=== PATIENT | male | born 1950 | race Caucasian/White ===

== ENCOUNTER → 2023-08-30 | Outpatient (CLI) | payer OTHER, MEDICARE, SELFPAY ==
--- OUTSIDE RECORDS SUMMARY | 2023-08-30 08:10 | XMS RPT_ITS | CCD ---
Author Name Unknown Address [address] [place] [address] Organization [facility] Care Team Providers Care Computer Hardware Technician Name Role Phone RAMANIRA, LYNETTE Unavailable Unavailabl e CORONADO, EWA Unavailable Unavailable MAIKEL LYNETTE Unavailable Unavailabl e CORONADO, EWA Unavailable Unavailable Steffen Warren MD Primary Care Provider [phone] STEFFEN WARREN Referring Unavailable STEFFEN WARREN Attending Unavailable STEFFEN WARREN Primary Care Unavailable Problems Problem Classification Problem Date Documented Da te Episodic/Chronic Cardiac dysrhythmias (4 sources) Paroxysmal atrial fibrillation; Translations: [Paroxysmal atrial fibrillation] Onset: 08-17-2023 08-17-2023 Chronic Results Test Name Value Interpretation Reference Range Facil ity Vital Signs Date Time Vital Sign Value Performing Clinician Faci lity 08-17-2023 08:28-0500 Body height 170.2 cm Steffen Warren MD Work Phone: [facility] [employer] 08-17-2023 08:28-0500 Body mass index (BMI) [Ratio] 33.67 kg/m2 Steffen Warren MD Work Phone: [facility] [employer] 08-17-2023 08:28-0500 Body weight 97.52 kg Steffen Warren MD Work Phone: [facility] [employer] Encounters Encounter Date Encounter Type Care Provider Facility Start: 08-17-2023 End: 08-18-2023 ambulatory STEFFEN WARREN [facility] Start: 08-17-2023 End: 08-17-2023 Subsequent hospital visit by physician Steffen Warren MD Work Phone: [facility] Non-Invasive Cardiology Procedures Date Procedure Procedure Detail Performing Clinician Start: 08-17-2023 Echo tthrc r-t 2d w/wom-mode compl spec&colr d Steffen Warren MD Work Phone: Plan of Treatment Date Care Activity Detail Author Start: 03-01-2023 COVID-19 Vaccine ( season) COVID-19 Vaccine ( season) [facility] Start: 2009 RSV Immunization age d 60 or older (1 - 1-dose 60+ series) RSV Immunization aged 60 or older (1 - 1-dose 60+ series) [facility] Start: 10-18-1999 Zoster Vaccines (1 of 2) Zoster Vacc macario (1 of 2) [facility] Start: 1968 DTaP/Tdap/Td Vaccine s (1 - Tdap) DTaP/Tdap/Td Vaccines (1 - Tdap) [facility] Start: 10-18-1967 Diabetes mellitus screening Diabetes Screening [facility] Start: 10-18-1967 Hepatitis C screening Hepatitis C Sc reening [facility] Start: 1961 Depression Screening Depression Scre ening [facility] Start: 1949 Lipid panel Lipid Panel [facility] Start: 1949 Screening for malign ant neoplasm of colon [facility] Payers Date Payer Category Payer Private Health Insurance [facility] OPT [id number] 2023-Present [address] [place] [address] Commercial [id number] 2023 Private Health Insurance [id number] 2016 Medicare MEDICARE MEDICAR E PART A AND B [id number] 2016-Present [address] [place] [address] Medicare [id number] 2016 Medicare [id number] Social History Date Type Detail Facility Tobacco smoking stat [facility] Tobacco smoking consumption unknown [facility] Start: 1950 Sex Assigned At Not on file [facility] Gender identity Not on file [facility] Clinical Notes 08-10-2020 to 12-08-2020 Note Date & Type Note Facility 12-08-2020 Note HNO ID: [id number] Author: Ant Munguia MD Service: ? Author Type: Physician Type: Progress Notes Filed: 12/08/2020 11:10 AM Note Text: Pseudophakia (primary encounter diagnosis) Lens replaced Prednisolone taper - prednisolone 1 drop three times a day for 1 week then Prednisolone 1 drop twice a day for 1 week then Prednisolone 1 drop once a day for 1 week then stop I Ant Munguia have confirmed and edited as necessary the relevant ophthalmic history, ROS, and neuro exam findings as obtained by others. I have seen and examined the patient. I also have reviewed and agree with the assessment and plan as stated above and agree with all of its relevant components. [facility] 11-30-2020 Note HNO ID: [id number] Author: Coty Mandujano MD Service: ? Author Type: Fellow Type: Progress Notes Filed: 11/30/2020 11:04 AM Note Text: Pseudophakia (primary encounter diagnosis) POD1 s/p cataract extraction with Intraocular lens right eye Prednisolone drop: 1 drop in the operated eye 4 times a day for 1 week, Then 1 drop in the operated eye 3 times a day for 1 week, Then 1 drop in the operated eye 2 times a day for 1 week, Then 1 drop in the operated eye 1 time a day for 1 week, Then STOP Vigamox drop: 1 drop in the operated eye 4 times a day for 5 days Discussed symptoms of infection, elevated IOP, and retinal detachment. Patient was encouraged to call immediately if any of these occur. I have confirmed and edited as necessary the relevant ophthalmic history, ROS, and the neuro exam findings as obtained by others. I have seen and examined this patient. I have discussed the case and the management of this patient's care with the Resident/Fellow, if applicable. I also have reviewed and agree with the assessment and plan as stated above and agree with all of its relevant components. Coty Mandujano MD November 30, 2020 11:03 AM [facility] 11-29-2020 Note HNO ID: [id number] Author: Ant Munguia MD Service: ? Author Type: Physician Type: Progress Notes Filed: 11/29/2020 1:14 PM Note Text: Nuclear senile cataract of right eye (primary encounter diagnosis) Cataract extraction with Intraocular lens right eye Discussed with patient risk, benefits and alternatives of cataract surgery including premium lenses we have decided to aim for mild myopia. Patient has seen video regarding cataract surgery and has had a chance to discuss the possible complications. In addition, we discussed treating astigmatism with a limbal relaxing incisions versus premium lenses. The patient understands that the limbal relaxing incisions are not as precise as a premium lens in correcting astigmatism. I Ant Munguia have confirmed and edited as necessary the relevant ophthalmic history, ROS, and neuro exam findings as obtained by others. I have seen and examined the patient. I also have reviewed and agree with the assessment and plan as stated above and agree with all of its relevant components. [facility] 11-10-2020 Note HNO ID: [id number] Author: Ant Munguia MD Service: ? Author Type: Physician Type: Progress Notes Filed: 11/10/2020 2:00 PM Note Text: Nuclear senile cataract of right eye (primary encounter diagnosis) History of pterygium excision with conjunctival graft Unspecified pterygium of right eye Cataract extraction and Intraocular lens right eye Will return for remeasurement of cataract in the right eye Prednisolone 1 drop four times a day Remove sutures Remove contact lens - recheck measurements prior to surgery because was wearing a bandage contact lens I Ant Munguia have confirmed and edited as necessary the relevant ophthalmic history, ROS, and neuro exam findings as obtained by others. I have seen and examined the patient. I also have reviewed and agree with the assessment and plan as stated above and agree with all of its relevant components. [facility] 10-25-2020 Note HNO ID: [id number] Author: Brayan Charles MD Service: ? 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 - RTC as scheduled post-op month 1 I have confirmed and edited as necessary the relevant ophthalmic history, ROS, and the neuro exam findings as obtained by others. I have seen and examined Kirk Nick. I have discussed the case and the management of this patient's care with the Resident/Fellow, if applicable. I also have reviewed and agree with the assessment and plan as stated above and agree with all of its relevant components. Coty Mandujano MD I have confirmed and edited as necessary the relevant ophthalmic history, ROS, and the neuro exam findings as obtained by others. I have discussed the case and the management of this patient's care with the Resident/Fellow, if applicable. I also have reviewed and agree with the assessment and plan as stated above and agree with all of its relevant components. Brayan Charles MD October 25, 2020 3:43 PM [facility] 10-20-2020 Note HNO ID: [id number] Author: Lizet Cantu (Coa) Service: ? Author Type: Fitting Supervisor Type: Progress Notes Filed: 10/20/2020 12:18 PM Note Text: Faxed additional paperwork/ questions to [facility] MUARLI Johnson, October 20, 2020, 12:18 PM ' [facility] 10-14-2020 Note HNO ID: [id number] Author: Lizet Cantu (Coa) Service: ? Author Type: Fitting Supervisor Type: Progress Notes Filed: 10/14/2020 4:02 PM Note Text: FMLA paperwork faxed to [facility] MURALI Johnson, October 14, 2020, 4:01 PM [facility] 10-12-2020 Note HNO ID: [id number] Author: Ant Munguia Service: ? Author Type: Physician Type: Progress Notes Filed: 10/12/2020 10:23 AM Note Text: Assessment AND Plan Z98.890 History of pterygium excision with conjunctival graft (primary encounter diagnosis) - POD1 s/p PTX OD with conjunctival autograft - Start PF, vigamox QID - BCL in place - Doing well - RTC as scheduled 1 week I have confirmed and edited as necessary the relevant ophthalmic history, ROS, and the neuro exam findings as obtained by others. I have seen and examined Kirk Nick. I have discussed the case and the management of this patient's care with the Resident/Fellow, if applicable. I also have reviewed and agree with the assessment and plan as stated above and agree with all of its relevant components. MD Liseth Winslow have confirmed and edited as necessary the relevant ophthalmic history, ROS, and neuro exam findings as obtained by others. I have seen and examined the patient. I also have reviewed and agree with the assessment and plan as stated above and agree with all of its relevant components. [facility] 09-28-2020 Note HNO ID: [id number] Author: Ant Munguia Service: ? Author Type: Physician Type: Progress Notes Filed: 09/28/2020 2:21 PM Note Text: Pterygium of right eye (primary encounter diagnosis) Lens replaced Nuclear senile cataract of right eye Removal of pterygium right eye then Cataract extraction The risks, benefits, alternatives, personnel and complications of the proposed procedure were discussed with Kirk Nick in detail. he appeared to understand and asked that I proceed with plans for surgery. Prednisolone (pink cap) 1 drop 4 times daily for 1 week then Prednisolone (pink cap) 1 drop 3 times daily for 1 week then Prednisolone (pink cap) 1 drop 2 times daily for 1 week then Prednisolone (pink cap) 1 drop 1 times daily for 1 week then Stop Antibiotic (beige cap) 1 drop 4 times a day for 5 days then Stop Please call office with any questions or concerns I Ant Munguia have confirmed and edited as necessary the relevant ophthalmic history, ROS, and neuro exam findings as obtained by others. I have seen and examined the patient. I also have reviewed and agree with the assessment and plan as stated above and agree with all of its relevant components. [facility] 09-14-2020 Note HNO ID: [id number] Author: Ant Munguia Service: ? Author Type: Physician Type: Progress Notes Filed: 09/14/2020 9:01 AM Note Text: Senile nuclear cataract, bilateral (primary encounter diagnosis) Pterygium of right eye Cataract extraction with Intraocular lens left eye Cataract Presurgical Documentation Cataract: Left eye (OS) Patient reported symptoms: Current Visual Acuity: Glare Testing: Left Eye Off 20/50 Left Eye Low 20/60 Left Eye Medium 20/80 Left Eye High 20/100 Visual Function: Kirk Nick states that the decline in vision from the cataract impedes the ability to drive as well as other activities of daily living. Kirk Nick has confirmed that he is no longer able to function adequately on a day-to-day basis because of his current visual condition. Further, it is my medical opinion that the cataract is the primary cause, or at least a significantly contributory cause of his visual dysfunction. With uncomplicated cataract surgery and lens implantation, it is my expectation that his visual function and quality of life will improve, significantly. The risks, benefits, alternatives, personnel and complications of cataract surgery with lens implantation were discussed with Kirk Nick in detail. he appeared to understand and asked that I proceed with plans for surgery. Goal -0.50 left eye /I Ant Munguia have confirmed and edited as necessary the relevant ophthalmic history, ROS, and neuro exam findings as obtained by others. I have seen and examined the patient. I also have reviewed and agree with the assessment and plan as stated above and agree with all of its relevant components. [facility] 08-10-2020 Note HNO ID: [id number] Author: Ant Munguia Service: ? Author Type: Physician Type: Progress Notes Filed: 08/10/2020 1:57 PM Note Text: Pterygium of right eye (primary encounter diagnosis) Nuclear senile cataract of both eyes Removal ptergyium right eye With autograft The risks, benefits, alternatives, personnel and complications of the proposed procedure were discussed with Kirk Nick in detail. he appeared to understand and asked that I proceed with plans for surgery. I Ant Munguia have confirmed and edited as necessary the relevant ophthalmic history, ROS, and neuro exam findings as obtained by others. I have seen and examined the patient. I also have reviewed and agree with the assessment and plan as stated above and agree with all of its relevant components. [facility] documented in this encounter [facility] Summary Purpose Family History No Family History Records FoundNo Family History Records FoundNo Family History Records FoundNo Family History Records FoundNo Family History Records Found Advance Directives No Advanced Directives Records FoundNo Advanced Directives Records FoundNo Advanced Directives Records FoundNo Advanced Directives Records FoundNo Advanced Directives Records Found Reason for Referral Specialty Diagnoses / Procedures Referred By Cassidy alba Referred To Contact Cardiology Diagnoses Paroxysmal atrial fibrillation (HCC) Procedures Transthoracic echocardiogram (TTE) complete with contrast, bubble, strain, and 3D PRN AL ECHO TTHRC R-T 2D W/WOM-MODE COMPL SPEC&COLR D AL TTE W OR WO FOL WCON,Steffen Leon MD [address] [place] [address] Referral ID Status Reason Start Date Expiration Date Visits Re quested Visits Authorized [id number] Closed 07/31/2023 07/30/2024 1 1 Additional Source Comments (unrecognized sect ion and content) No Status Records FoundNo Status Records FoundNo Status Records FoundNo Status Records FoundNo Status Records Found INFORMATION SOURCE (unrecogn ized section and content) DATE CREATED AUTHOR AUTHOR'S ORGANIZ ATION 11/26/2020 [facility] DATE CREATED AUTHOR AUTHOR'S ORGANIZ ATION 12/14/2020 [facility] DATE CREATED AUTHOR AUTHOR'S ORGANIZ ATION 07/28/2021 [facility] DATE CREATED AUTHOR AUTHOR'S ORGANIZ ATION 08/18/2023 [facility] Reason for Visit (unrecogniz ed section and content) Referral ID Status Reason Start Date Expiration Date Visits Re quested Visits Authorized [id number] Closed 07/31/2023 07/30/2024 1 1 Care Teams (unrecognized sec tion and content) FOR RECORDS PERTAINING TO PATIENTS WHO ARE OR HAVE BEEN ENROLLED IN A CHEMICAL DEPENDENCY/SUBSTANCEABUSE PROGRAM, SOME INFORMATION MAY BE OMITTED. This clinical summary was aggregated from multiple sources. Caution should be exercised in using it in the provision of clinical care. This summary normalizes information from multiple sources, and as a consequence, information in this document may materially change the coding, format and clinical context of patient data. In addition, data may be omitted in some cases. CLINICAL DECISIONS SHOULD BE BASED ON THE PRIMARY CLINICAL RECORDS. [email or web address] provides no warranty or guarantee of the accuracy or completeness of information in this document.
== END | disposition home or self-care (01) ==
LOC: PSN 07:50
PROVIDERS: PCP Family Medicine; Referring Provider Internal Medicine Cardiovascular Disease; Visit Provider Internal Medicine Cardiovascular Disease
DX: I48.0 Paroxysmal atrial fibrillation (principal)
CPT/HCPCS: 93225; 93226